=== PATIENT | female | born 1980 | race Caucasian/White ===

== ENCOUNTER 2019-11-21 15:27 | Emergency (ER) | payer OTHER, SELFPAY ==
[2019-11-21 15:36] VITALS: BP 129/71; PULSE 82; RESP 18; TEMP 36.1; O2SAT 98
[2019-11-21 15:57] LABS: Basophils Percent Auto 0.4 % (0.2-1.2); Hematocrit 37.8 % (37.0-47.0); Immature Granulocyte Absolute 0.03 K/mm3 (0.00-0.031); Immature Granulocyte Percent A 0.3 % (0-0.5); Lymphocytes Absolute Auto 0.99 K/mm3 (0.9-3.2); Mean Corpuscular HGB Conc 29.1 g/dl (32-36); Mean Corpuscular Hemoglobin 20.8 pg (26-34); Mean Corpuscular Volume 71.5 fl (80-100); Mean Platelet Volume 11.2 fl (7.4-10.4); Monocytes Absolute Auto 0.3 K/mm3 (0.1-0.6); Monocytes Percent Auto 3.1 % (2.6-8.5); Neutrophils Absolute Auto 7.7 K/mm3 (1.3-6.7); Neutrophils Percent Auto 85.2 % (45.5-73.1); Platelet Count Result 325 k/mm3 (150-375); Red Blood Count 5.29 M/mm3 (4.2-5.4); Red Cell Distribution Width 17.3 % (11.5-14.5)
[2019-11-21 16:03] LABS: Hypochromasia 1+ (NORMAL); Ovalocytes 1+ (NORMAL); Platelet Estimate Adequate (Adequate)
[2019-11-21 16:04] LABS: Anisocytosis 1+ (NORMAL)
[2019-11-21 16:07] LABS: Alanine Aminotransferase 14 U/L (4-35); Albumin Level 4.7 g/dL (3.5-5.1); Alkaline Phosphatase 110 U/L (38-126); Aspartate Amino Transferase 25 U/L (14-36); Bilirubin,Total 0.4 mg/dL (0.2-1.3); Blood Urea Nitrogen 7 mg/dL (7-17); Calcium 9.2 mg/dL (8.4-10.2); Carbon Dioxide 22 mmol/L (22-30); Chloride 108 mmol/L (98-107); Estimated CRCL calculation 121 ml/min; Estimated Glomerular Filt Rate > 60; Glucose 159 mg/dL (65-105); Lipase 61 U/L (23-300); Potassium 4.1 mmol/L (3.4-5.0); Sodium 140 mmol/L (137-145)
[2019-11-21] MEDS: SODIUM CHLORIDE 0.9% IV 1,000 ML 999 ML IV CONT (16:29)
[2019-11-21] MEDS: FAMOTIDINE 20 MG/2 ML VIAL IV PUSH (16:30)
[2019-11-21] MEDS: LORAZEPAM INJ 2 MG/ML VIAL 1 MG IV PUSH (16:31)
[2019-11-21] MEDS: PROCHLORPERAZINE EDISYLATE 10 MG/2 ML VIAL IV PUSH (16:32)
[2019-11-21] MEDS: HALOPERIDOL LACTATE 5 MG/ML VIAL IM (16:33)
[2019-11-21 17:11] VITALS: BP 113/92; PULSE 68; RESP 18; O2SAT 100
[2019-11-21 17:14] LABS: Add Urine Microscopic? YES; Appearance Urine Clear (Clear); Bacteria Urine Trace /hpf; Bilirubin Urine Negative (Negative); Blood Urine Negative (Negative); Color Urine Yellow (Yellow); Glucose Urine UA Negative (Negative); Ketones Urine 2+ mg/dL (Negative); Leukocyte Esterase Ur Negative LEU/UL (Negative); Mucus Urine Heavy /lpf; Nitrate Urine Negative (Negative); Protein Urine 2+ mg/dL (Negative); RBC Urine 0-2 /hpf (0-2); Squamous Epithelial Cell Urine Occasional /hpf (Few); Urobilinogen Urine Negative mg/dL (<2.0)
--- NOTE | 2019-11-21 17:14 | ED.NAVMDI ---
HPI - Nausea/Vomiting/Diarrhea General Chief complaint: Nausea/Vomiting/Diarrhea <RICHARD Campbell Last Filed: 11/21/19 17:30> Stated complaint: Vomiting <RICHARD Campbell Last Filed: 11/21/19 17:30> Time Seen by Provider: 11/21/19 16:04 <RICHARD Campbell Last Filed: 11/21/19 17:30> Source: patient <RICHARD Campbell Filed: 11/21/19 17:30> Mode of arrival: ambulatory <RICHARD Campbell Last Filed: 11/21/19 17:30> Limitations: no limitations <RICHARD Campbell Filed: 11/21/19 17:30> History of Present Illness HPI Narrative: Patient is a 39-year-old female who presents to emergency department for evaluation of vomiting that began this morning noting history of cyclic vomiting noting she is out of her Compazine and Zofran notes generalized body aches denies any rectal bleeding diarrhea hematemesis or URI symptoms or sick contacts presents per EMS in no distress resting comfortably in the room <RICHARD Campbell Last Filed: 11/21/19 17:30> Related Data Home medications: Home Medications Medication Instructions Recorded Confirmed aripiprazole 15 mg PO DAILY 11/21/19 clonazepam 0.5 mg PO QID PRN 11/21/19 fluoxetine 40 mg PO DAILY 11/21/19 lamotrigine 75 mg PO DAILY 11/21/19 levetiracetam [Keppra] 500 mg PO BID 11/21/19 levothyroxine 25 mcg PO DAILY 11/21/19 <RICHARD Campbell Last Filed: 11/21/19 17:30> Allergies/Adverse reactions: Allergies Allergy/AdvReac Type Severity Reaction Status Date / Time NSAIDS (Non-Steroidal Allergy Unknown Nausea and Verified 11/21/19 15:40 Anti-Inflamma Vomiting <RICHARD Campbell Last Filed: 11/21/19 17:30> Review of Systems Review of Systems: All systems reviewed & are unremarkable except as noted in HPI and below <RICHARD Campbell Last Filed: 11/21/19 17:30> PMFSH Past Medical History Medical History: Medical History (Updated 11/21/19 @ 17:26 by Elmer Gonzalez PA-C) Cyclic vomiting syndrome <Elmer Gonzalez PA-C - Last Filed: 11/21/19 17:30> Social History Social History: Social History (Updated 11/21/19 @ 17:16 by Elmer Gonzalez PA-C) Smoking status: Never smoker Gender identity (if verbalized by the patient): Female <Elmer Gonzalez PA-C - Last Filed: 11/21/19 17:30> Exam Narrative: Exam Narrative: GENERAL: Well-appearing, well-nourished, and in no acute distress. HEAD: Normocephalic, atraumatic. EYES: PERRLA and EOMI. ENT: Nares clear, no rhinorrhea or epistaxis. Mucous membranes moist. CHEST: Clear to auscultation. No respiratory distress. No wheezes rales or rhonchi HEART: Regular rate and rhythm. No murmur heard. Normal peripheral pulses. ABDOMEN: Soft, generalized tenderness, nondistended EXTREMITIES: Normal range of motion. No edema. SKIN: Warm, dry, no rash. NEURO: No focal deficits. Alert and oriented x3. PSYCH: Normal mood and affect. <Elmer Gonzalez PA-C - Last Filed: 11/21/19 17:30> Course Course Emergency Course: Patient in the room in no distress aware of case findings treatment plan and diagnosis agreeing to follow-up as directed <Elmer Gonzalez PA-C - Last Filed: 11/21/19 17:30> Vital Signs Vital signs: Vital Signs Temperature 97 F L 11/21/19 15:36 Pulse Rate 82 11/21/19 15:36 Respiratory Rate 18 11/21/19 15:36 Blood Pressure 129/71 11/21/19 15:36 Pulse Oximetry 98 11/21/19 15:36 Temperature 97 F L 11/21/19 15:36 Pulse Rate 68 11/21/19 17:37 Respiratory Rate 18 11/21/19 17:37 Blood Pressure 143/86 H 11/21/19 17:37 Pulse Oximetry 98 11/21/19 17:37 <Elmer Gonzalez PA-C - Last Filed: 11/21/19 17:30> Vital Signs Temperature 97 F L 11/21/19 15:36 Pulse Rate 82 11/21/19 15:36 Respiratory Rate 18 11/21/19 15:36 Blood Pressure 129/71 11/21/19 15:36 Pulse Oximetry 98 11/21/19 15:36 Temper
[2019-11-21 17:16] LABS: Specific Grav Ur 1.032 (1.001-1.035)
[2019-11-21 17:37] VITALS: BP 143/86; PULSE 68; RESP 18; O2SAT 98
== END 2019-11-21 17:38 | disposition home or self-care (01) ==
PROVIDERS: Emergency Medicine Emergency Medical Services; Emergency Provider Emergency Medicine
DX: B34.9 Viral infection, unspecified (principal); K59.00 Constipation, unspecified
CPT/HCPCS: 36415; 51701; 80053; 81001; 81025; 83690; 85025; 96361; 96372; 96374; 96375; 99284; J0780; J1200; J1630; J2060; J7030

== ENCOUNTER 2020-08-15 10:03 | Emergency (ER) | payer BC, SELFPAY ==
--- NOTE | ~2020-08-15 | CT_ITS ---
EXAMINATION: CT abdomen pelvis w con EXAM DATE: 08/15/2020 11:56 INDICATION: Cyclical vomiting. Nausea. TECHNIQUE: Spiral CT of the abdomen and pelvis was performed following intravenous injection of 100 m L Omnipaque 350. Axial, coronal and sagittal images were reviewed. The dose-length product (DLP) fo r this examination was 1101.33 mGy-cm. The exposure was tailored according to patient size (auto mA exposure control), and iterative reconstruction (ASIR) was used as additional dose reduction techniqu e. There is no prior study for comparison. FINDINGS: The liver, spleen, adrenal glands and pancreas are unremarkable. Gallbladder is unremarkab le. No biliary obstruction. Portal and splenic veins are patent. Kidneys enhance symmetrically. T here is no hydronephrosis. The uterus is unremarkable. The bladder is unremarkable. There is no retroperitoneal or pelvic lymphadenopathy. The appendix is normal. 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 There is exp ected amount of colonic stool. No free intraperitoneal gas. The heart is normal in size. There a re no pericardial or pleural effusions. The lung bases are unremarkable. The bones are unremarkable . IMPRESSION: No acute intra-abdominal findings. Reviewed, dictated and finalized at location B. [employer]
[2020-08-15 10:08] VITALS: BP 146/90; PULSE 112; RESP 14; TEMP 36.8; O2SAT 99
--- NOTE | 2020-08-15 10:26 | PC.NURSE ---
Patient attempted to give urine sample at this time, unable to give sample and will attempt again later.
[2020-08-15 10:35] LABS: Basophils Percent Auto 0.2 % (0.2-1.2); Hematocrit 45.3 % (37.0-47.0); Immature Granulocyte Absolute 0.13 K/mm3 (0.00-0.031); Immature Granulocyte Percent A 0.7 % (0-0.5); Lymphocytes Absolute Auto 1.95 K/mm3 (0.9-3.2); Lymphocytes Percent Auto 9.9 % (18.3-44.2); Mean Corpuscular HGB Conc 33.1 g/dl (32-36); Mean Corpuscular Hemoglobin 25.6 pg (26-34); Mean Corpuscular Volume 77.4 fl (80-100); Mean Platelet Volume 10.8 fl (7.4-10.4); Monocytes Absolute Auto 1.7 K/mm3 (0.1-0.6); Monocytes Percent Auto 8.6 % (2.6-8.5); Neutrophils Absolute Auto 15.8 K/mm3 (1.3-6.7); Neutrophils Percent Auto 80.6 % (45.5-73.1); Platelet Count Result 426 k/mm3 (150-375); Red Blood Count 5.85 M/mm3 (4.2-5.4); Red Cell Distribution Width 15.9 % (11.5-14.5); White Blood Count 19.6 K/mm3 (4.5-10.0)
[2020-08-15 10:46] LABS: Albumin Level 5.3 g/dL (3.5-5.1); Alkaline Phosphatase 138 U/L (38-126); Anion Gap 16 mmol/L (8-16); Aspartate Amino Transferase 69 U/L (14-36); Bilirubin,Total 0.6 mg/dL (0.2-1.3); Blood Urea Nitrogen 18 mg/dL (7-17); Carbon Dioxide 21 mmol/L (22-30); Chloride 93 mmol/L (98-107); Estimated CRCL calculation 72 ml/min; Estimated Glomerular Filt Rate 54; Glucose 133 mg/dL (65-105); Lipase 102 U/L (23-300); Potassium 4.2 mmol/L (3.4-5.0); Sodium 130 mmol/L (137-145)
[2020-08-15] MEDS: LACTATED RINGERS 1,000 ML 999 ML IV CONT ×2 (11:03→12:38)
[2020-08-15] MEDS: METOCLOPRAMIDE HCL INJ 10 MG/2 ML VIAL IV PUSH (11:04)
[2020-08-15] MEDS: FAMOTIDINE 20 MG/2 ML VIAL IV PUSH (11:05)
[2020-08-15] MEDS: LORazepam INJ (*CRX) 2 MG/ML VIAL 1 MG IV PUSH (11:06)
[2020-08-15 11:18] LABS: Alanine Aminotransferase 31 U/L (4-35)
[2020-08-15 12:38] VITALS: BP 134/72; BP 138/79; PULSE 115; PULSE 129
[2020-08-15 12:40] VITALS: BP 135/82; PULSE 133
[2020-08-15 13:03] LABS: Add Urine Microscopic? YES; Appearance Urine Clear (Clear); Bilirubin Urine Negative (Negative); Blood Urine 1+ (Negative); Color Urine Straw (Yellow); Glucose Urine UA Negative (Negative); Ketones Urine Trace mg/dL (Negative); Leukocyte Esterase Ur Negative LEU/UL (Negative); Mucus Urine Rare /lpf; Nitrate Urine Negative (Negative); Protein Urine 1+ mg/dL (Negative); RBC Urine 0-2 /hpf (0-2); Squamous Epithelial Cell Urine Rare /hpf (Few); Urobilinogen Urine Negative mg/dL (<2.0); WBC Urine 0-3 /hpf
[2020-08-15 13:05] LABS: Specific Grav Ur 1.031 (1.001-1.035)
--- NOTE | 2020-08-15 13:15 | ED.GENADULT ---
HPI - General Adult General Chief complaint: Nausea/Vomiting/Diarrhea Stated complaint: cyclic vomiting x1.5 days Time Seen by Provider: 08/15/20 10:18 Source: patient Mode of arrival: ambulatory Limitations: no limitations History of Present Illness HPI narrative: Patient is a 40-year-old female who presents with 3 days history of cyclic vomiting has been attempting Compazine with no improvement has history of cyclic vomiting has primary care follow-up for this notes for the last several days she has had difficulty keeping down fluids mainly today retching denies any abdominal pain lightheadedness dizziness URI symptoms or other complaints presents per private vehicle Related Data Home Medications Medication Instructions Recorded Confirmed aripiprazole 15 mg PO DAILY 11/21/19 clonazepam 0.5 mg PO QID PRN 11/21/19 fluoxetine 40 mg PO DAILY 11/21/19 lamotrigine 75 mg PO DAILY 11/21/19 levetiracetam [Keppra] 500 mg PO BID 11/21/19 levothyroxine 25 mcg PO DAILY 11/21/19 Allergies Allergy/AdvReac Type Severity Reaction Status Date / Time NSAIDS (Non-Steroidal Allergy Unknown Nausea and Verified 08/15/20 10:21 Anti-Inflamma Vomiting Review of Systems Review of Systems: All systems reviewed & are unremarkable except as noted in HPI and below PMFSH Past Medical History Medical History Cyclic vomiting syndrome Social History Social History Smoking status: Never smoker Gender identity (if verbalized by the patient): Female Exam Narrative: Exam Narrative: GENERAL: Well-appearing, well-nourished, and in no acute distress. HEAD: Normocephalic, atraumatic. EYES: PERRLA and EOMI. ENT: Nares clear, no rhinorrhea or epistaxis. Mucous membranes moist. CHEST: Clear to auscultation. No respiratory distress. No wheezes rales or rhonchi HEART: Regular rate and rhythm. No murmur heard. Normal peripheral pulses. ABDOMEN: Soft, nontender, nondistended EXTREMITIES: Normal range of motion. No edema. SKIN: Warm, dry, no rash. NEURO: No focal deficits. Alert and oriented x3. Cranial nerves II through XII grossly intact PSYCH: Normal mood and affect. Course Course Emergency Course: Patient was hydrated in the emergency department with 2 L of fluid given medications noting improvement of symptoms and tolerating p.o. intake. Patient had elevated white count had CAT scan of the abdomen to rule out other etiology for his symptoms which was unremarkable. Patient will follow with primary care for further evaluation feels comfortable to go home. Patient was hydrated secondary to dehydration with 2 L of fluids. Patient resting comfortably in the room in no distress ABCs intact and vital signs stable Vital Signs Vital signs: Vital Signs Temperature 98.2 F 08/15/20 10:08 Pulse Rate 112 H 08/15/20 10:08 Respiratory Rate 14 08/15/20 10:08 Blood Pressure 146/90 H 08/15/20 10:08 Pulse Oximetry 99 08/15/20 10:08 Temperature 98.2 F 08/15/20 10:08 Pulse Rate 133 H 08/15/20 12:40 Respiratory Rate 14 08/15/20 10:08 Blood Pressure 135/82 08/15/20 12:40 Pulse Oximetry 99 08/15/20 10:08 Medical Decision Making [facility] Narrative Medical decision making narrative: Patient in the room aware of case findings treatment plan and diagnosis agreeing to follow-up with primary care as directed likely cyclic vomiting related given her history and similar occurrences patient advised to follow-up with primary care and agrees to return if symptoms worsen Vital Signs Vital Signs: Vital Signs Temperature 98.2 F 08/15/20 10:08 Pulse Rate 112 H 08/15/20 10:08 Respiratory Rate 14 08/15/20 10:08 Blood Pressure 146/90 H 08/15/20 10:08 Pulse Oximetry 99 08/15/20 10:08 Temperature 98.2 F 08/15/20 10:08 Pulse Rate 133 H 08/15/20 12:40 Respiratory Rate 14 08/15/20 10:08 Blood Pressure
[2020-08-15 13:38] VITALS: BP 135/76; PULSE 97; RESP 15; O2SAT 100
== END 2020-08-15 13:39 | disposition home or self-care (01) ==
PROVIDERS: Emergency Provider Emergency Medicine; PCP Internal Medicine
DX: E86.0 Dehydration (principal); R10.9 Unspecified abdominal pain
CPT/HCPCS: 36415; 74177; 80053; 81001; 81025; 83690; 85025; 96361; 96374; 96375; 99284; J2060; J2765; J7120; Q9967

== ENCOUNTER 2020-08-16 08:14 | Emergency (ER) | payer BC, SELFPAY ==
[2020-08-16] VITALS (16 sets, daily range): BP systolic 114–148; BP diastolic 66–109; PULSE 100–112; RESP 13–25; TEMP 36.7; O2SAT 97–100
--- NOTE | 2020-08-16 08:56 | ED.NAVMDI ---
HPI - Nausea/Vomiting/Diarrhea General Chief complaint: Nausea/Vomiting/Diarrhea Stated complaint: Cyclic Vomiting Time Seen by Provider: 08/16/20 08:47 Source: patient Limitations: no limitations History of Present Illness HPI Narrative: Patient is a 40-year-old female complaining of nausea vomiting x2 days. Patient was seen here yesterday and was diagnosed with cyclic vomiting syndrome, was given medications, which resolved her nausea vomiting, hence, was discharged home. Patient states she was given Ativan and morphine yesterday which worked well for her nausea and vomiting. Patient had labs and CT scan of her abdomen pelvis, did not show any acute abdominal process. Patient states that her nausea vomiting occurred this morning. Denies any chest pain, shortness of breath, abdominal pain, diarrhea, fever, chills or urinary symptoms. Related Data Home Medications Medication Instructions Recorded Confirmed aripiprazole 15 mg PO DAILY 11/21/19 clonazepam 0.5 mg PO QID PRN 11/21/19 fluoxetine 40 mg PO DAILY 11/21/19 lamotrigine 75 mg PO DAILY 11/21/19 levetiracetam [Keppra] 500 mg PO BID 11/21/19 levothyroxine 25 mcg PO DAILY 11/21/19 Allergies Allergy/AdvReac Type Severity Reaction Status Date / Time NSAIDS (Non-Steroidal Allergy Unknown Nausea and Verified 08/16/20 08:28 Anti-Inflamma Vomiting Review of Systems Review of Systems: All systems reviewed & are unremarkable except as noted in HPI and below Constitutional: Constitutional: Denies body ache(s), Denies chills, Denies excessive sweating, Denies fatigue, Denies fever(s), Denies headache(s), Denies lethargy, Denies malaise, Denies weakness and Denies weight loss Eyes: Eyes: Denies blurry vision, Denies change in vision and Denies loss of vision ENT: Denies dizziness, Denies ear discharge, Denies headache(s), Denies lip swelling, Denies epistaxis, Denies nasal congestion, Denies neck pain, Denies throat swelling and Denies tongue swelling Cardiovascular: Cardiovascular: Denies chest pain, Denies chest pain at rest, Denies chest pain with activity, Denies diaphoresis, Denies rapid heart rate, Denies edema, Denies irregular heart rhythm, Denies lightheadedness, Denies palpitations, Denies dyspnea and Denies dyspnea on exertion Respiratory: Respiratory: Denies chest congestion, Denies cough, Denies hemoptysis, Denies dyspnea and Denies dyspnea on exertion Gastrointestinal: Gastrointestinal: Denies abdominal pain, Denies melena, Denies hematochezia, Denies diarrhea and Denies hematemesis Musculoskeletal: Musculoskeletal: Denies abnormal gait, Denies deformity, Denies joint swelling, Denies limited range of motion, Denies neck pain and Denies numbness Neurologic: Denies Abnormal speech present, Denies abnormal gait, Denies confusion, Denies dizziness, Denies headache(s), Denies focal weakness, Denies loss of vision, Denies numbness, Denies Other visual disturbances, Denies Sensory deficit (Neuro) and Denies weakness Psychiatric: Psychiatric: Denies confusion, Denies depression, Denies auditory hallucinations, Denies homicidal ideation and Denies suicidal ideation Endocrine: Endocrine: Denies cold intolerance, Denies excessive sweating, Denies fatigue, Denies heat intolerance and Denies palpitations Hematologic/Lymphatic: Hematologic/Lymphatic: Denies easy bleeding and Denies easy bruising Allergic/Immunologic: Allergic/Immunologic: Denies lip swelling, Denies throat swelling and Denies tongue swelling PMFSH Past Medical History Medical History Cyclic vomiting syndrome Social History Social History Smoking status: Never smoker Gender identity (if verbalized by the patient): Female Exam Const: General: cooperative, healthy appearing, comfortable, no acute distress, well developed, alert and awake; No confusion Orientation/consciousness: orie
[2020-08-16 09:19] LABS: Basophils Percent Auto 0.2 % (0.2-1.2); Hematocrit 44.3 % (37.0-47.0); Hemoglobin 14.9 g/dL (12.0-15.0); Immature Granulocyte Absolute 0.08 K/mm3 (0.00-0.031); Immature Granulocyte Percent A 0.6 % (0-0.5); Lymphocytes Absolute Auto 2.16 K/mm3 (0.9-3.2); Mean Corpuscular HGB Conc 33.6 g/dl (32-36); Mean Corpuscular Volume 77.3 fl (80-100); Mean Platelet Volume 10.8 fl (7.4-10.4); Monocytes Absolute Auto 1.8 K/mm3 (0.1-0.6); Monocytes Percent Auto 12.8 % (2.6-8.5); Neutrophils Absolute Auto 10.3 K/mm3 (1.3-6.7); Neutrophils Percent Auto 71.4 % (45.5-73.1); Platelet Count Result 414 k/mm3 (150-375); Red Blood Count 5.73 M/mm3 (4.2-5.4); White Blood Count 14.4 K/mm3 (4.5-10.0)
[2020-08-16] MEDS: SODIUM CHLORIDE 0.9% IV 1,000 ML 999 ML IV CONT (09:26)
[2020-08-16 09:37] LABS: Alanine Aminotransferase 37 U/L (4-35); Alkaline Phosphatase 131 U/L (38-126); Anion Gap 12 mmol/L (8-16); Aspartate Amino Transferase 73 U/L (14-36); Bilirubin,Total 0.6 mg/dL (0.2-1.3); Blood Urea Nitrogen 16 mg/dL (7-17); Calcium 9.8 mg/dL (8.4-10.2); Carbon Dioxide 25 mmol/L (22-30); Chloride 93 mmol/L (98-107); Estimated CRCL calculation 87 ml/min; Estimated Glomerular Filt Rate > 60; Glucose 121 mg/dL (65-105); Lipase 116 U/L (23-300); Potassium 3.9 mmol/L (3.4-5.0); Sodium 130 mmol/L (137-145)
[2020-08-16] MEDS: PROMETHAZINE HCL 25 MG/ML AMPUL 12.5 MG IV PUSH (10:18)
--- NOTE | 2020-08-16 10:18 | PC.NURSE ---
Pt denies any relief of nausea from zofran. Additional med given as ordered.
[2020-08-16] MEDS: ONDANSETRON INJ 4 MG/2 ML VIAL IV PUSH (10:19)
--- NOTE | 2020-08-16 11:04 | PC.NURSE ---
Pt requesting morphine and ativan multiple times to Dr. Sears and to this RN. Pt states nausea has not gone at present. Pt is also c/o of being uncomfortable, if I could just get something to calm down I would feel alot better . Dr. Sears aware. Pt needs frequent reminding to straighten arm so IVF can infuse.
--- NOTE | 2020-08-16 11:05 | PC.NURSE ---
Note pt has not wretched or had any emesis since arrival to ED.
--- NOTE | 2020-08-16 11:29 | PC.NURSE ---
Upon return from bathroom, pt reports nausea and pain are worse and is requesting further medication. Dr. Sears made aware.
== END 2020-08-16 11:54 | disposition home or self-care (01) ==
PROVIDERS: Emergency Provider Emergency Medicine; PCP Internal Medicine
DX: R11.15 Cyclical vomiting syndrome unrelated to migraine (principal)
CPT/HCPCS: 36415; 80053; 83690; 85025; 96361; 96374; 96375; 99284; J2405; J2550; J7030

== ENCOUNTER 2023-05-04 18:28 | Emergency (ER) | payer BC, SELFPAY ==
--- NOTE | ~2023-05-04 | XR_ITS ---
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 COMPARISON: None available. FINDINGS: Normal mineralization. No fracture or dislocation. No lytic or blastic lesion. Joint space s are maintained. No erosion or periosteal change. Soft tissues within normal limits. IMPRESSION: No acute osseous finding in the left thumb. Reviewed, dictated and finalized at location [facility].
[2023-05-04 18:31] VITALS: BP 140/68; PULSE 93; RESP 22; TEMP 36.6; O2SAT 99
[2023-05-04] MEDS: KETOROLAC 30 MG/ML VIAL (*BKC) IM (19:44)
[2023-05-04] MEDS: TETANUS,DIPHTHERIA,AC PERTUSSIS ADULT (0.5 ML) BOOSTRIX IM (19:45)
--- NOTE | 2023-05-04 19:55 | ED.WOUNDLAC ---
HPI - Wound/Laceration General Chief Complaint: Wound/Laceration Stated Complaint: laceration Time Seen by Provider: 05/04/23 19:28 History of Present Illness HPI narrative: This is a 43-year-old female with past history of epilepsy, who presents to the emergency room with a laceration of the left thumb suffered yesterday. The patient states she was struck on corn with a cord structure, when she slipped and cut her thumb. She states despite attempts to close the wound with glue at home and applied pressure the thumb continued to bleed. She complains of 4/10 stinging pain. She was seen at an outside urgent care and referred here for further evaluation. She states bleeding has since stopped. Related Data Home Medications Medication Instructions Recorded Confirmed aripiprazole 15 mg tablet 15 mg PO DAILY 11/21/19 clonazepam 0.5 mg tablet 0.5 mg PO QID PRN Anxiety 11/21/19 fluoxetine 40 mg capsule 40 mg PO DAILY 11/21/19 lamotrigine 25 mg tablet 75 mg PO DAILY 11/21/19 levetiracetam 500 mg tablet 500 mg PO BID 11/21/19 (Keppra) levothyroxine 25 mcg tablet 25 mcg PO DAILY 11/21/19 Allergies Allergy/AdvReac Type Severity Reaction Status Date / Time NSAIDS (Non-Steroidal Allergy Unknown Nausea and Verified 08/16/20 08:28 Anti-Inflamma Vomiting Review of Systems Review of Systems: CONSTITUTIONAL: Denies fever, chills, or sweats. CARDIOVASCULAR: Denies chest pain, palpitations, or edema. RESPIRATORY: Denies cough or dyspnea. GASTROINTESTINAL: Denies abdominal pain, nausea, vomiting, or diarrhea. MUSCULOSKELETAL: Left thumb pain denies back pain, or myalgia. NEUROLOGIC: Denies headache, numbness, dizziness, or weakness. PSYCHIATRIC: Denies anxiety or depression. [facility] Past Medical History Medical History Cyclic vomiting syndrome Social History Social History Smoking status: Never smoker Gender identity (if verbalized by the patient): Female Exam Narrative: GENERAL: Well-developed, well-nourished, and in no acute distress. HEAD: Normocephalic, atraumatic. EYES: PERRLA and EOMI. CHEST: Clear to auscultation. No respiratory distress. No wheezes rales or rhonchi HEART: Regular rate and rhythm. No murmur heard. Normal peripheral pulses. ABDOMEN: Soft, nontender, nondistended, normal active bowel sounds. EXTREMITIES: A 1/2 cm laceration with skin flap was noted to the medial aspect of the left proximal thumb. Capillary refill in the left thumb intact. Normal range of motion. No edema. SKIN: Warm, dry, no rash. NEURO: Alert and oriented x3. Moving all 4 limbs purposefully. Sensation of the left thumb is intact. PSYCH: Normal mood and affect. Course Course Emergency Course: 19:56 - X-ray of the left thumb not concerning for fracture or retained foreign object. After discussion with the patient we elected to bandage the wound. The patient's tetanus vaccination was updated. Will discharge with recommendation for primary care follow-up. Discussed return emerged precautions including signs/symptoms of wound infection and neurovascular compromise. The patient voiced understanding and is comfortable with the plan. All questions answered to her satisfaction. Vital Signs Vital signs: Vital Signs Temperature 97.9 F 05/04/23 18:31 Pulse Rate 93 05/04/23 18:31 Respiratory Rate 22 H 05/04/23 18:31 Blood Pressure 140/68 05/04/23 18:31 Pulse Oximetry 99 05/04/23 18:31 Oxygen Delivery Room Air 05/04/23 18:31 Temperature 97.9 F 05/04/23 18:31 Pulse Rate 93 05/04/23 18:31 Respiratory Rate 22 H 05/04/23 18:31 Blood Pressure 140/68 05/04/23 18:31 Pulse Oximetry 99 05/04/23 18:31 Oxygen Delivery Room Air 05/04/23 18:31 MDM - Wound/Laceration MDM Narrative Medical decision making narrative: Plan: Pain control, tetanus vaccination, imaging, woun
== END 2023-05-04 20:42 | disposition home or self-care (01) ==
PROVIDERS: Emergency Provider Preventive Medicine Aerospace Medicine; PCP Family Medicine
DX: S61.012A Laceration without foreign body of left thumb without damage to nail, initial encounter (principal); Z23 Encounter for immunization; G40.909 Epilepsy, unspecified, not intractable, without status epilepticus; W27.4XXA Contact with kitchen utensil, initial encounter; Y93.G1 Activity, food preparation and clean up
CPT/HCPCS: 73140; 90471; 90715; 96372; 99283; J1885

== ENCOUNTER 2024-03-31 15:41 | Emergency (ER) | payer BC, SELFPAY ==
--- NOTE | 2024-03-31 15:49 | ED.URI ---
HPI - URI/Sore Throat General Chief Complaint: Upper Respiratory Infection Stated Complaint: Sore Throat Time Seen by Provider: 03/31/24 15:50 Source: patient, RN notes reviewed and old records reviewed Mode of arrival: ambulatory Limitations: no limitations History of Present Illness HPI Narrative: 44-year-old [facility] to [facility] for complaint of sore throat 03/14 the past 3 days. Patient reports that her daughter tested positive for strep throat last week. Patient has not attempted to treat at home. Patient denies fever, difficulty swallowing, cough, nasal drainage, ear pain, headache, chills, body ache, shortness of breath. Patient able to tolerate fluids by mouth. Respirations even and nonlabored. Patient in no acute distress. Related Data Home Medications Medication Instructions Recorded Confirmed aripiprazole 15 mg tablet 15 mg PO DAILY 11/21/19 03/31/24 fluoxetine 40 mg capsule 40 mg PO DAILY 11/21/19 03/31/24 levothyroxine 25 mcg tablet 25 mcg PO DAILY 11/21/19 03/31/24 dextroamphetamine-amphetamine ER 30 mg PO DIRECTED 03/31/24 03/31/24 30 mg 24hr capsule,extend release ferrous sulfate 325 mg (65 mg 325 mg DIRECTED 03/31/24 03/31/24 iron) tablet (FeroSul) gabapentin 600 mg tablet 600 mg PO DIRECTED 03/31/24 03/31/24 omeprazole 40 mg capsule,delayed 40 mg DIRECTED 03/31/24 03/31/24 release topiramate 50 mg tablet 50 mg DIRECTED 03/31/24 03/31/24 Allergies Allergy/AdvReac Type Severity Reaction Status Date / Time NSAIDS (Non-Steroidal Allergy Unknown Nausea and Verified 08/16/20 08:28 Anti-Inflamma Vomiting Review of Systems Review of Systems: All systems reviewed & are unremarkable except as noted in HPI and below Constitutional: Constitutional: Reports no additional constitutional complaints Eyes: Eyes: Reports no additional eye complaints ENT: Reports as per HPI and Reports sore throat Cardiovascular: Cardiovascular: Reports no additional cardiovascular complaints, Denies chest pain and Denies dyspnea Respiratory: Respiratory: Reports no additional respiratory complaints, Denies cough and Denies dyspnea Musculoskeletal: Musculoskeletal: Reports no additional musculoskeletal complaints Neurologic: Reports system reviewed and no additional complaints, except as documented Psychiatric: Psychiatric: Reports no additional psychiatric complaints PMFSH Past Medical History Medical History Cyclic vomiting syndrome Social History Social History Smoking status: Never smoker Gender identity (if verbalized by the patient): Female Comments At the time of my signature, I reviewed and agree with the nursing past medical, surgical, social, and family history. There is no relevant family history pertinent to the patient complaint. Exam Const: General: cooperative, no acute distress, well developed, alert, ill appearing acutely, tired appearing, well groomed and well nourished Nutritional Appearance: well nourished Orientation/consciousness: patient oriented x3 Limitations: no limitations HENMT: Head: normal to inspection Ears: external ears normal Face/Nose/Sinus: Normal external nose present, Normal nares present, normal facial exam, No erythema and No edema Face and sinus: normal facial exam, no erythema and no edema Mouth: Yes Normal oral and palatal mucosa present Throat: uvula midline, abnormal tonsil bilateral erythema, exudates and hypertrophy 2+ and posterior oropharynx abnormal erythema Eyes: General: appearance normal, both eyes and all related structures Neck: Neck: normal visual inspection, full ROM and no meningeal signs Lymphatic: no lymphedema noted and lymphadenopathy bilateral anterior cervical Chest: Chest palpation & inspection: normal inspection of the chest Resp: Effort & Inspection: normal respiratory effort and able to spe
[2024-03-31 15:55] VITALS: BP 124/69; PULSE 109; RESP 16; TEMP 36.8; O2SAT 100
[2024-03-31 15:57] VITALS: BP 124/69; PULSE 109; RESP 16; TEMP 36.8; O2SAT 100
[2024-04-01 11:36] LABS: EDSTREPNEGPOS1 Negative
== END 2024-03-31 16:14 | disposition home or self-care (01) ==
PROVIDERS: Emergency Provider Nurse Practitioner Family; PCP Family Medicine
DX: J02.9 Acute pharyngitis, unspecified (principal)
CPT/HCPCS: 87081; 87880; 99213; G0463